=== PATIENT | female | born 1995 | race Caucasian/White ===

== ENCOUNTER 2020-04-04 22:33 | Emergency (ER) | payer SELFPAY ==
[~2020-04-04] VITALS: Ht 160 cm; Wt 88.0 kg
[2020-04-04 22:44] VITALS: Ht 160 cm; Wt 88.0 kg
[2020-04-05 00:22] VITALS: BP 169/109
== END 2020-04-05 00:22 | disposition home or self-care (01) ==
LOC: ED 22:33
DX: S60.455A Superficial foreign body of left ring finger, initial encounter (principal); W45.8XXA Other foreign body or object entering through skin, initial encounter; Y93.89 Activity, other specified; Y92.89 Other specified places as the place of occurrence of the external cause; Y99.8 Other external cause status
CPT/HCPCS: J1885